=== PATIENT | female | born 1950 | race Hispanic/Latino ===

== ENCOUNTER → 2018-08-30 | Outpatient (CLI) | payer MEDICARE ==
--- NOTE | 2018-08-31 08:32 | Diagnostic Imaging Report ---
#[id number] - [id number] #UNILATERAL RIGHT DIGITAL DIAGNOSTIC MAMMOGRAM WITH CAD: 08/30/2018 Comparison is made to exams dated: 02/22/2018 mammogram, 02/08/2018 mammogram, 01/21/2018 mammogram and 12/05/2016 mammogram - [facility]. Current study contains 6 films. There are scattered fibroglandular elements in the right breast. Current study was also evaluated with a Computer Aided Detection (CAD) system. There are benign vascular calcifications and calcifications in the right breast. There also is a biopsy clip in the right breast associated with a small mass. A surgical scar marker is noted. No significant masses, calcifications, or other findings are seen in the breast. There has been no significant interval change. IMPRESSION: BENIGN There is no mammographic evidence of malignancy. A 1 year screening mammogram is recommended. The patient will be notified by letter of the results. Eric Croft Jr., D.O. cw/:08/30/2018 16:04:59 Conventions Assistant: Dena JIMENEZ)(M), [facility] letter sent: Compared to Prior B9 Mammogram BI-RADS: 2 Benign
== END ==
LOC: MAMMO 09:12
PROVIDERS: ATTEND Surgery
DX: R92.1 Mammographic calcification found on diagnostic imaging of breast (principal); N60.11 Diffuse cystic mastopathy of right breast

== ENCOUNTER → 2019-12-08 | Day surgery (SDC) | payer MEDICARE, OTHER ==
[2019-12-05 14:18] LABS: BASOPHILS % 0.3 % (0.0-1.0); EOSINOPHILS # (AUTO) 0.1 (0.0-0.4); EOSINOPHILS % 0.7 % (0.0-6.0); HEMATOCRIT 42.5 % (34.2-44.1); HEMOGLOBIN 13.6 g/dL (12.0-16.0); LYMPHOCYTES # (AUTO) 2.3 (1.0-3.2); LYMPHOCYTES % 27.3 % (18.0-39.1); MEAN CORPUSCULAR HEMOGLOBIN 29.8 pg (28-32); MONOCYTES # (AUTO) 0.5 (0.2-0.8); MONOCYTES % 5.8 % (4.4-11.3); NEUTROPHILS # (AUTO) 5.6 (2.1-6.9); NEUTROPHILS % 65.6 % (38.7-80.0); PLATELET COUNT 414 x10e3/uL (140-360); RED BLOOD COUNT 4.57 x10e6/uL (3.6-5.1); RED CELL DISTRIBUTION WIDTH 13.3 % (11.7-14.4)
--- NOTE | 2019-12-05 14:38 | Diagnostic Imaging Report ---
EXAM: CHEST 2 VIEWS DATE: 12/05/2019 1:28 PM INDICATION: Preoperative evaluation COMPARISON: None FINDINGS: The trachea is midline. The lungs are symmetrically expanded without evidence for large focal consolidation, pneumothorax, or significant pleural effusion. The cardiomediastinal silhouette and pulmonary vasculature are within normal limits. Mild atherosclerotic calcifications noted within the aortic arch. No acute osseous abnormality is identified. The surrounding soft tissues are unremarkable. Surgical clips noted within the right upper quadrant. IMPRESSION: No acute cardiopulmonary process identified. Signed by: Dr. Dnon Saldaña MD on 12/05/2019 2:35 PM
[~2019-12-08] MED LIST: ACETAMINOPHEN 1000 MG/100 ML 100 ML IV ONE; ACETAMINOPHEN 1000 MG/100 ML IV ONE; AMLODIPINE BESY10 MG PO; ASPIR 8181 MG PO; BACITRACIN 50,000 UNIT VIAL ONE; BUPIVACAINE HCL 0.5% INJ 30 ML VIAL INJ ONE; CEFAZOLIN SOD 1 GM/NS 50ML 100 ML IV ONE; CYMBALTA30 MG PO; DEXAMETHASONE SOD PHOS INJ 4 MG/ML VIAL ONE; ETOMIDATE 2 MG/ML 10 ML INJ IV ONE; FENTANYL CITRATE/PF 100MCG/2 ML INJ ONE; LIDOCAINE HCL 2% LOCAL INJ 5 ML SDV VIAL INJ ONE; MELOXICAM7.5 MG PO; METOPROLOL SUCC50 MG PO; MIDAZOLAM HCL 2 MG/2 ML VIAL ONE; OMEGA 3 PO; OMEPRAZOLE40 MG PO; ONDANSETRON HCL INJ 2MG/ML 2ML 2 MG/ML VIAL ONE; SEVOFLURANE INHAL SOLN 250 ML PEN BTL ONE
[2019-12-08 12:05] VITALS: BP 109/64
--- NOTE | 2019-12-13 16:04 | Operative Report ---
DATE OF PROCEDURE: 12/08/2019 SURGEON: Jorge Alberto Amaya MD PREOPERATIVE DIAGNOSIS: Right small finger displaced metacarpal fracture. POSTOPERATIVE DIAGNOSIS: Right small finger displaced metacarpal fracture. OPERATION PROCEDURE PERFORMED: Open reduction and internal fixation of the right small finger metacarpal fracture. ENVIRONMENTAL SCIENCE INSTRUCTOR: There was no academic assistant. ANESTHESIA: General endotracheal intubation anesthesia. IV FLUIDS: Per the Anesthesia record. BRIEF DESCRIPTION OF THE PATIENT'S OPERATIVE PROCEDURE: Ms. Paige was taken to the operating room and placed in supine position on the operating table. Following induction of general anesthesia as well as endotracheal intubation, the patient's right upper extremity was examined under anesthesia. She was found to have bruising and ecchymosis over the right hand. There was swelling along the ulnar border of the hand dorsally. Fluoroscopic evaluation of the hand demonstrated an oblique fracture of the small finger metacarpal with shortening of the injury. Examination of the hand demonstrated a malrotation component of her injury also. The patient's upper extremity was prepped and draped in standard surgical fashion. The case was begun by creating an incision in the webspace between the ring and small finger metacarpals. This incision was carried through skin only. Blunt dissection was used to deepen the incision and the extensor tendons were mobilized over the small finger. The fracture was identified. The fractured fragment was cleaned and the fracture was then held in a reduced position with the fracture reduction clamp. Two screws were then inserted across the patient's fracture site providing stability to the patient's injury. The position of the screws as well as reduction of fracture was then assessed using fluoroscopy and found to be appropriate. The finger was placed through range of motion, and there was no motion at the level of the fracture site. The wound was copiously irrigated. Soft tissues were closed in a multilayer fashion. Sterile dressings were applied as well as a well-padded ulnar gutter splint. The patient was then awakened and taken to postanesthesia care unit in stable condition. MD HARRY García/BENIGNOL /[id number]
== END | disposition home or self-care (01) ==
LOC: OR 07:08
PROVIDERS: ATTEND Specialist
DX: S62.326A Displaced fracture of shaft of fifth metacarpal bone, right hand, initial encounter for closed fracture (principal); M06.9 Rheumatoid arthritis, unspecified; D64.9 Anemia, unspecified; I10 Essential (primary) hypertension; K21.9 Gastro-esophageal reflux disease without esophagitis; I44.7 Left bundle-branch block, unspecified; N28.9 Disorder of kidney and ureter, unspecified; F32.9 Major depressive disorder, single episode, unspecified; W18.30XA Fall on same level, unspecified, initial encounter; Z88.6 Allergy status to analgesic agent; Y92.89 Other specified places as the place of occurrence of the external cause; Z01.810 Encounter for preprocedural cardiovascular examination; Z01.812 Encounter for preprocedural laboratory examination; Z01.818 Encounter for other preprocedural examination; Z11.59 Encounter for screening for other viral diseases; Z79.82 Long term (current) use of aspirin
CPT/HCPCS: 26615; 36415; 71046; 85025; 87635; 93005; J0131; J0690; J1100; J2001; J2250; J2405; J3010; 76000

== ENCOUNTER 2020-01-27 13:00 | Outpatient (RCR) | payer MEDICARE ==
[~2020-01-27 13:00] MED LIST changes: -ACETAMINOPHEN 1000 MG/100 ML 100 ML IV ONE; -ACETAMINOPHEN 1000 MG/100 ML IV ONE; -BACITRACIN 50,000 UNIT VIAL ONE; -BUPIVACAINE HCL 0.5% INJ 30 ML VIAL INJ ONE; -CEFAZOLIN SOD 1 GM/NS 50ML 100 ML IV ONE; -DEXAMETHASONE SOD PHOS INJ 4 MG/ML VIAL ONE; -ETOMIDATE 2 MG/ML 10 ML INJ IV ONE; -FENTANYL CITRATE/PF 100MCG/2 ML INJ ONE; -LIDOCAINE HCL 2% LOCAL INJ 5 ML SDV VIAL INJ ONE; -MIDAZOLAM HCL 2 MG/2 ML VIAL ONE; -ONDANSETRON HCL INJ 2MG/ML 2ML 2 MG/ML VIAL ONE; -SEVOFLURANE INHAL SOLN 250 ML PEN BTL ONE
== END 2020-02-03 ==
LOC: OT 13:00
PROVIDERS: ATTEND Specialist
DX: S62.306D Unspecified fracture of fifth metacarpal bone, right hand, subsequent encounter for fracture with routine healing (principal); M79.641 Pain in right hand; M25.641 Stiffness of right hand, not elsewhere classified; R53.1 Weakness

== ENCOUNTER 2020-02-10 14:16 | Outpatient (RCR) | payer MEDICARE | END 2020-03-05 | LOC: OT 14:16 | PROVIDERS: ATTEND Specialist | DX: S62.306D Unspecified fracture of fifth metacarpal bone, right hand, subsequent encounter for fracture with routine healing (principal); M79.641 Pain in right hand; M25.641 Stiffness of right hand, not elsewhere classified; R53.1 Weakness ==

== ENCOUNTER → 2022-02-13 | Outpatient (CLI) | payer MEDICARE | LOC: MAMMO 09:07 | PROVIDERS: ATTEND Family Medicine | DX: Z12.31 Encounter for screening mammogram for malignant neoplasm of breast (principal) | CPT/HCPCS: 77067 ==

== ENCOUNTER → 2022-09-29 | Outpatient (CLI) | payer MEDICARE | LOC: DX 11:56 | PROVIDERS: ATTEND Family Medicine | DX: M85.88 Other specified disorders of bone density and structure, other site (principal) | CPT/HCPCS: 76770; 77080 ==

== ENCOUNTER → 2023-04-29 | Outpatient (REF) | payer MEDICARE | LOC: US 10:30 | PROVIDERS: ATTEND Nurse Practitioner Gerontology | DX: R22.43 Localized swelling, mass and lump, lower limb, bilateral (principal) | CPT/HCPCS: 76882 ==